=== PATIENT | female | born 1945 | race Caucasian/White ===

== ENCOUNTER 2019-11-21 10:16 | Emergency (ER) | payer MEDICARE, OTHER ==
[2019-11-21 10:29] VITALS: BP 140/83
--- NOTE | 2019-11-21 12:16 | ED Physician Documentation ---
PD HPI HEENT - Stated complaint Stated Complaint: SINUS ISSUES - Chief complaint Chief Complaint: Heent - History obtained from History obtained from: Patient - History of Present Illness Timing - onset: How many days ago (3-4) Timing - duration: Days Timing - details: Gradual onset Location: Sinuses Improves: Nothing Associated symptoms: Congestion, Rhinorrhea, Headache. No: Fever Similar symptoms before: Diagnosis Recently seen: Not recently seen - Additional information Additional information: This is a 74-year-old woman with a history of recurrent sinus infection who presents with complaints that she thinks she has a another sinus infection. She has had a cold for the past 3 or 4 days just feeling achy and congested little cough with minimal phlegm but then today around 2 AM she developed a "throbbing headache worse across the frontal region but now her right maxillary sinus is also very painful. She is been using her [place]a pot trying to flush things out without success. She thinks the last time she was on antibiotics was a couple years ago. She is been nauseous today and vomited some bile. She has had no fever. 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 She also has asthma. Review of Systems Constitutional: denies: Fever Eyes: reports: Other (No blurry or double vision). denies: Loss of vision Ears: reports: Loss of hearing (Wears hearing aids). denies: Ear pain Nose: reports: Rhinorrhea / runny nose, Congestion, Sinus pressure / pain Throat: reports: Sore throat Respiratory: reports: Cough GI: reports: Nausea, Vomiting PD PAST MEDICAL HISTORY - Present Medications Home Medications: Ambulatory Orders Medication Instructions Recorded Confirmed Amoxicillin 500 mg PO TID 10 Days #1 bottle 11/21/19 Ondansetron Odt [Zofran] 4 mg TL Q6H PRN #6 tablet 11/21/19 - Allergies Allergies/Adverse Reactions: Allergies Allergy/AdvReac Type Severity Reaction Status Date / Time No Known Drug Allergies Allergy Verified 11/21/19 10:23 PD ED PE NORMAL - Vitals Vital signs reviewed: Yes - General General: Alert and oriented X 3, No acute distress, Well developed/nourished - HEENT HEENT: Atraumatic, PERRL, EOMI, Ears normal, Moist mucous membranes, Pharynx benign - Neck Neck: Supple, no meningeal sign, No adenopathy - Cardiac Cardiac: RRR, No murmur - Respiratory Respiratory: No respiratory distress, Clear bilaterally Results - Vitals Vitals: Vital Signs - 24 hr 11/21/19 10:23 Temperature 37.1 C Heart Rate 88 Respiratory 16 Rate Blood Pressure 140/83 H O2 Saturation 96 Oxygen O2 Source Room air PD MEDICAL DECISION MAKING - ED course Complexity details: d/w patient ED course: Patient was placed on amoxicillin 500 mg 3 times daily. Urged to continue using her [place] pot. Ibuprofen as a anti-inflammatory and steam can also help to open up the sinus and allow it to drain. Follow-up with her ENT if her symptoms are not improving. Departure - Departure Disposition: Home, Self Care Clinical Impression: Sinusitis Qualifiers: Sinusitis location: other Chronicity: acute Recurrence: recurrent Qualified Code(s): J01.81 - Other acute recurrent sinusitis Condition: Good Instructions: ED Sinusitis Abx Tx Follow-Up: Katia Weinberg MD [Primary Care Provider] - Prescriptions: Amoxicillin 500 mg PO TID 10 Days #1 bottle Ondansetron Odt [Zofran] 4 mg TL Q6H PRN #6 tablet PRN Reason: Nausea / Vomiting Comments: Continue to use your Norma pot. Take the amoxicillin 3 times a day for 10 days. Use ibuprofen to help with the inflammation and pain. May take the Zofran if needed for nausea. Follow-up with your ENT if you are not improving. Discharge Date/Time: 11/21/19 13:07
[2019-11-21] MEDS ORDERED: ONDANSETRON ODT 4 MG TABLET TL STA (12:59)
== END 2019-11-21 13:07 | disposition home or self-care (01) ==
LOC: ED 10:16
DX: J01.81 Other acute recurrent sinusitis (principal)
CPT/HCPCS: 99282; 99284; Q0162

== ENCOUNTER 2020-07-11 13:26 | Outpatient (CLI) | payer MEDICARE, OTHER | END 2020-07-11 13:27 | disposition home or self-care (01) | LOC: COV 13:26 | PROVIDERS: ATTEND Family Medicine | DX: R05 Cough (principal); R06.02 Shortness of breath; M79.10 Myalgia, unspecified site; R53.83 Other fatigue; R68.83 Chills (without fever); J02.9 Acute pharyngitis, unspecified; R09.81 Nasal congestion; Z20.828 Contact with and (suspected) exposure to other viral communicable diseases ==

== ENCOUNTER 2020-09-12 11:25 | Outpatient (CLI) | payer MEDICARE, OTHER | END 2020-09-12 11:26 | disposition home or self-care (01) | LOC: COV 11:25 | PROVIDERS: ATTEND Family Medicine | DX: R53.83 Other fatigue (principal); J02.9 Acute pharyngitis, unspecified; Z20.828 Contact with and (suspected) exposure to other viral communicable diseases ==

== ENCOUNTER 2020-10-31 08:00 | Outpatient (CLI) | payer MEDICARE, OTHER | END 2020-10-31 23:59 | disposition home or self-care (01) | LOC: LAB.R 08:00 | PROVIDERS: ATTEND Physician Assistant | DX: J06.9 Acute upper respiratory infection, unspecified (principal); Z20.828 Contact with and (suspected) exposure to other viral communicable diseases | CPT/HCPCS: 87275; 87276; U0004 ==

== ENCOUNTER 2022-08-11 14:55 | Emergency (ER) | payer MEDICARE, OTHER ==
--- OUTSIDE RECORDS SUMMARY | 2022-08-11 15:23 | EXTERNAL MEDICAL SUMMARY RPT | Continuity of Care Document ---
:1945 Author Organization [facility] Address [address] [place] [address] Phone Care Team Providers Name Role Phone Unavailable Unavailable Unavailable Wesley Burnett Pa-C Unavailable Unavailable Allergies No information. Encounters No information. Functional Status No information. Immunizations No information. Medications date description facility [id number] omeprazole [facility] [id number] omeprazole [facility] [id number] omeprazole [facility] [id number]+0000 omeprazole [facility] Problems No information. Procedures date description facility [id number] Visit Code Hold [facility] Results/Labs No information. Social History date description facility [id number] Never smoker [facility] Vital Signs date measurement value units [id number] BMI BMI 27.22 kg/m2 [id number]+0000 BP_diastolic BP_diastolic 85 mmHg [id number]+0000 BP_systolic BP_systolic 153 mmHg [id number]+0000 heart_rate heart_rate 82 /min [id number]+0000 height_metric height_metric 162.56 cm [id number]+0000 height_standard height_standard 64 in [id number]+0000 respiration_rate respiration_rate 16 /min [id number]+0000 temperature_metric temperature_metric 36.22 C [id number]+0000 temperature_standard temperature_standard 9 7.2 F [id number]+0000 weight_metric weight_metric 71.67 kg [id number]+0000 weight_standard weight_standard 158 lb
[2022-08-11 15:41] LABS: BASOPHILS # (AUTO) 0.1 10^3/uL (0.0-0.1); BASOPHILS % (AUTO) 0.7 %; EOSINOPHILS # (AUTO) 0.1 10^3/uL (0.0-0.7); EOSINOPHILS % (AUTO) 1.3 %; HCT - HEMATOCRIT 40.8 % (37.0-47.0); HGB - HEMOGLOBIN 13.1 g/dL (12.0-16.0); LYMPHOCYTES # (AUTO) 2.2 10^3/uL (1.5-3.5); LYMPHOCYTES % (AUTO) 31.3 %; MEAN CORPUSCULAR HEMOGLOBIN 30.5 pg (27.0-31.0); MEAN CORPUSCULAR HGB CONC 32.1 g/dL (32.0-36.0); MEAN CORPUSCULAR VOLUME 95.1 fL (81.0-99.0); MEAN PLATELET VOLUME 10.5 fL (7.9-10.8); MONOCYTES # (AUTO) 0.7 10^3/uL (0.0-1.0); MONOCYTES % (AUTO) 9.8 %; NEUTROPHILS % (AUTO) 56.8 %; PLT - PLATELET COUNT 226 10^3/uL (130-450); RED BLOOD COUNT 4.29 10^6/uL (4.20-5.40); RED CELL DISTRIBUTION WIDTH 13.4 % (12.0-15.0); WHITE BLOOD COUNT 7.1 x10^3/uL (4.8-10.8)
[2022-08-11 15:50] LABS: ALBUMIN 4.5 g/dL (3.2-5.5); ALBUMIN/GLOBULIN RATIO 1.5 (1.0-2.2); BILIRUBIN,TOTAL 0.6 mg/dL (0.2-1.0); CALCIUM 10.1 mg/dL (8.5-10.3); CREATININE 0.6 mg/dL (0.4-1.0); POTASSIUM 3.8 mmol/L (3.5-5.0); TOTAL PROTEIN 7.5 g/dL (6.7-8.2)
[2022-08-11 16:55] LABS: BILIRUBIN,URINE NEGATIVE (NEGATIVE); GLUCOSE, URINE (UA) NEGATIVE (NEGATIVE); KETONES,URINE (UA) NEGATIVE (NEGATIVE); LEUKOCYTE ESTERASE, URINE TRACE (NEGATIVE); NITRITE,URINE POSITIVE (NEGATIVE); OCCULT BLOOD,URINE NEGATIVE (NEGATIVE); PROTEIN,URINE NEGATIVE (NEGATIVE); UROBILINOGEN,URINE 0.2 (NORMAL) E.U./dL (NORMAL)
[2022-08-11 17:01] LABS: CLARITY,URINE HAZY (CLEAR)
[2022-08-11 17:06] LABS: BACTERIA,URINE Many /HPF (None Seen); RBC,URINE 0-5 /HPF (0-5); SQUAMOUS EPITHELIAL CELL,UR RARE Squamous (<= Few)
--- NOTE | 2022-08-11 18:17 | ED Physician Documentation ---
PD HPI ABD PAIN - Stated complaint Stated Complaint: R SIDE PX - Chief complaint Chief Complaint: Abd Pain - History obtained from History obtained from: Patient - Additional information Additional information: Patient is 77-year-old female presenting for evaluation of right lower quadrant pain starting 10 days ago. The pain is intermittent. It has radiated to the right flank. The pain is now constant and feels like a dull ache. She denies dysuria or hematuria But reports frequency. She denies diarrhea, nausea vomiting or constipation. Nothing makes her symptoms Worse. She does have some improvement at times with naproxen. She denies history of similar pains. She denies history of abdominal surgeries. She denies fever, chest pain or difficulty breathing. She does not take any blood thinners. Review of Systems Constitutional: denies: Fever Nose: denies: Congestion Throat: denies: Sore throat Cardiac: denies: Chest pain / pressure Respiratory: denies: Dyspnea GI: reports: Abdominal Pain. denies: Nausea, Vomiting : reports: Frequency. denies: Dysuria Musculoskeletal: denies: Back pain Neurologic: denies: Headache PD PAST MEDICAL HISTORY - Present Medications Home Medications: Ambulatory Orders Medication Instructions Recorded Confirmed Amoxicillin 500 mg PO TID 10 Days #1 bottle 11/21/19 Ondansetron Odt [Zofran] 4 mg TL Q6H PRN #6 tablet 11/21/19 Nitrofurantoin [Macrobid] 1 cap PO BID #10 cap 08/11/22 - Allergies Allergies/Adverse Reactions: Allergies Allergy/AdvReac Type Severity Reaction Status Date / Time No Known Drug Allergies Allergy Verified 11/21/19 10:23 PD ED PE NORMAL - General General: Alert and oriented X 3, No acute distress, Well developed/nourished - HEENT HEENT: Atraumatic, Moist mucous membranes - Neck Neck: Supple, no meningeal sign - Cardiac Cardiac: RRR, No murmur, Strong equal pulses - Respiratory Respiratory: No respiratory distress, Clear bilaterally - Abdomen Abdomen: Normal bowel sounds, Soft, Non distended, Other (Mild right lower quadrant tenderness to palpation, no rebound, no guarding, no hernia or palpable masses) - Back Back: No CVA TTP - Derm Derm: Warm and dry - Extremities Extremities: No edema - Neuro Neuro: Normal speech Results - Vitals Vitals: Vital Signs - 24 hr 08/11/22 08/11/22 08/11/22 14:59 15:07 17:07 Temperature 36.9 C 36.9 C Heart Rate 69 69 62 Respiratory 16 16 20 Rate Blood Pressure 159/76 H 159/76 H 179/90 H O2 Saturation 98 98 97 08/11/22 08/11/22 19:00 19:45 Temperature 36.8 C Heart Rate 79 75 Respiratory 20 19 Rate Blood Pressure 116/65 117/63 O2 Saturation 96 97 Oxygen O2 Source Room air - Labs Labs: Laboratory Tests 08/11/22 08/11/22 08/11/22 15:19 15:19 16:46 WBC 7.1 RBC 4.29 Hgb 13.1 Hct 40.8 MCV 95.1 MCH 30.5 MCHC 32.1 RDW 13.4 Plt Count 226 MPV 10.5 Neut # (Auto) 4.0 Lymph # (Auto) 2.2 [place] # (Auto) 0.7 Eos # (Auto) 0.1 Baso # (Auto) 0.1 Absolute Nucleated RBC 0.00 Nucleated RBC % 0.0 Sodium 143 Potassium 3.8 Chloride 106 Carbon Dioxide 30 Anion Gap 7.0 BUN 16 Creatinine 0.6 Estimated GFR (MDRD) 97 Glucose 113 H Calcium 10.1 Total Bilirubin 0.6 AST 19 ALT 18 Alkaline Phosphatase 90 Total Protein 7.5 Albumin 4.5 Globulin 3.0 Albumin/Globulin Ratio 1.5 Lipase 54 H Urine Color YELLOW Urine Clarity HAZY Urine pH 6.0 Ur Specific [employer] 1.020 Urine Protein NEGATIVE Urine Glucose (UA) NEGATIVE Urine Ketones NEGATIVE Urine Occult Blood NEGATIVE Urine Nitrite POSITIVE H Urine Bilirubin NEGATIVE Urine Urobilinogen 0.2 (NORMAL) Ur Leukocyte Esterase TRACE H Urine RBC 0-5 Urine WBC 11-25 H Ur Squamous Epith Cells RARE Squamous Urine Bacteria Many H Ur Microscopic Review INDICATED Urine Culture Comments INDICATED PD MEDICAL DECISION MAKING - ED course Complexity details: reviewed results, re-evaluated patient, d/w patient ED course: Patient presenting for evaluation of right-sided abdominal pain that has been intermittent over the course of 10 days. Her vital signs are stable and overall her abdominal exam is benign. Labs without significant findings. Her urine is concerning for an infection. Her CT scan is unremarkable. Patient denies dysuria but does report some frequency with urination. As her symptoms are also in the lower abdomen discussed treatment for UTI which she is agreeable to. Patient was counseled on concerning symptoms to return for. She declined need for pain medications while in the emergency department. Departure - Departure Disposition: 01 Home, Self Care Clinical Impression: Right sided abdominal pain, UTI (urinary tract infection) Condition: Stable Instructions: ED Abdominal Pain Female Non-Specific Abdominal Pain, ED UTI Cystitis Female Prescriptions: Nitrofurantoin [Macrobid] 1 cap PO BID #10 cap Comments: You were evaluated for right-sided abdominal pain. Your labs were overall reassuring and your CT scan did not reveal a cause for the pain. Your urine however was concerning for an infection and we have started you on an antibiotic called Macrobid. I have sent the prescription to [facility] in [place]. Please make sure to complete the course of the antibiotic. We have also sent a urine culture and if you need a different antibiotic we will notify you. If you have any new or worsening symptoms please return to the emergency department. Discharge Date/Time: 08/11/22 19:48
--- NOTE | 2022-08-11 19:27 | CT Report ---
PROCEDURE: Abdomen/Pelvis W INDICATIONS: RLQ pain CONTRAST: IV CONTRAST: Optiray 320 ml: 100 PO CONTRAST: *NO PO CONTRAST TECHNIQUE: After the administration of weight appropriate dose of intravenous contrast, 5 mm thick sections acqu ired from the diaphragms to the symphysis. 5 mm thick coronal and sagittal reformats were acquired. For radiation dose reduction, the following was used: automated exposure control, adjustment of mA and/or kV according to patient size. COMPARISON: None. FINDINGS: Image quality: Excellent. ABDOMEN: Lung bases: Bibasilar atelectasis. Heart size is normal. Solid organs: Liver and spleen are normal in size and enhancement. Hepatic steatosis. Gallbladder is unremarkable. Biliary system is non dilated. Pancreas enhances normally. No adrenal nodules. Kid neys demonstrate normal size and enhancement, without hydronephrosis. No perinephric stranding. Bila teral ureters are normal in course and caliber. Peritoneum and bowel: Bowel loops demonstrate normal wall thickness and caliber. No free fluid or a ir. Extensive colonic diverticulosis without acute diverticulitis. Normal appendix. Nodes and vessels: No retroperitoneal or mesenteric adenopathy by size criteria. Aorta and inferior vena cava are normal in size. Miscellaneous: Small fat-containing umbilical hernia without acute inflammation. PELVIS: Genitourinary: Bladder wall thickness is normal. Miscellaneous: No inguinal hernias or adenopathy. Bones: No suspicious bony lesions. No acute vertebral body compression fractures. Multilevel spondy losis of the imaged spine. IMPRESSION: CT abdomen and pelvis without acute abnormalities to explain patient's right lower quadrant abdominal pain. Normal appendix. Colonic diverticulosis without acute diverticulitis. Small fat-containing umbilical hernia without acute inflammation. Hepatic steatosis. Reviewed by: Willem Hernandes MD on 08/11/2022 7:26 PM PDT Approved by: Willem Hernandes MD on 08/11/2022 7:26 PM PDT Station ID: [id number]
[2022-08-11] MEDS ORDERED: NITROFURANTOIN MACRO 100 MG CAPSULE PO STA (19:37)
[2022-08-11 19:45] VITALS: BP 117/63
== END 2022-08-11 19:48 | disposition home or self-care (01) ==
LOC: ED 14:55
DX: N39.0 Urinary tract infection, site not specified (principal)
CPT/HCPCS: 36415; 74177; 80053; 81001; 83690; 85025; 87086; 87181; 99282; 99284; A9270; Q9967; 81003

== ENCOUNTER 2024-06-17 19:13 | Emergency (ER) | payer MEDICARE, OTHER ==
--- NOTE | 2024-06-17 19:32 | ED Physician Documentation ---
History of Present Illness - Stated complaint Stated Complaint: HIGH HR - Chief complaint Chief Complaint: Cardiac - History obtained from History obtained from: Patient - History of Present Illness Timing: Today Pain level max: 0 Pain level now: 0 - Additonal information Additional information: Patient is a 79-year-old female who presents to the emergency department stating that she has a history of paroxysmal atrial fibrillation. She is on Eliquis. Is not on any rate limiting medications. She states that her heart rate became elevated tonight. She is not having any shortness of breath or chest pain. 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 Nothing makes it better or worse. No fevers. No chills. No cough or congestion. No changes to her medications. No recent illnesses. PD PAST MEDICAL HISTORY - Past Medical History Past Medical History: Yes Cardiovascular: Atrial fibrillation Respiratory: Asthma Other Past Medical History: chronic allerigies - Past Surgical History Past Surgical History: No - Present Medications Home Medications: Ambulatory Orders Medication Instructions Recorded Confirmed Amoxicillin 500 mg PO TID 10 Days #1 bottle 11/21/19 Ondansetron Odt [Zofran] 4 mg TL Q6H PRN #6 tablet 11/21/19 Nitrofurantoin [Macrobid] 1 cap PO BID #10 cap 08/11/22 - Allergies Allergies/Adverse Reactions: Allergies Allergy/AdvReac Type Severity Reaction Status Date / Time No Known Drug Allergies Allergy Verified 06/17/24 19:16 - Social History Does the pt smoke?: No Smoking Status: Never smoker Does the pt drink ETOH?: No - Immunizations Immunizations are current?: Yes PD ED PE NORMAL - Vitals Vital signs reviewed: Yes - General General: Alert and oriented X 3, No acute distress - HEENT HEENT: Moist mucous membranes - Neck Neck: Supple, no meningeal sign - Cardiac Cardiac: Strong equal pulses, Other (irregular tachycardia. ) - Respiratory Respiratory: No respiratory distress, Clear bilaterally - Abdomen Abdomen: Soft, Non tender, Non distended - Derm Derm: Warm and dry - Neuro Neuro: Alert and oriented X 3 - Psych Psych: Normal mood, Normal affect Results - Vitals Vitals: Vital Signs - 24 hr 06/17/24 06/17/24 06/17/24 19:16 19:44 20:27 Temperature 36.4 C L Heart Rate 79 95 75 Respiratory 20 16 12 Rate Blood Pressure 149/101 H 131/83 H 151/86 H O2 Saturation 97 94 98 06/17/24 20:32 Temperature 36.2 C L Heart Rate Respiratory Rate Blood Pressure O2 Saturation Oxygen O2 Source Room air - EKG (time done) 1924 EKG releavant findings:: EKG personally interpreted by author of this note. Relevant findings are: Rate: Rate (enter#) (157) Rhythm: Atrial fibrillation (RVR) [place]: Anterior hemiblock (LAFB) QRS: Normal - Labs Labs: Laboratory Tests 06/17/24 06/17/24 19:55 19:55 WBC 8.1 RBC 4.49 Hgb 13.9 Hct 43.5 MCV 96.9 MCH 31.0 MCHC 32.0 RDW 13.2 Plt Count 260 MPV 9.9 Neut # (Auto) 4.2 Lymph # (Auto) 2.9 [place] # (Auto) 0.8 Eos # (Auto) 0.1 Baso # (Auto) 0.1 Absolute Nucleated RBC 0.00 Nucleated RBC % 0.0 Sodium 144 Potassium 3.6 Chloride 111 Carbon Dioxide 23 Anion Gap 10.0 BUN 15 Creatinine 0.4 L Estimated GFR (MDRD) 154 Glucose 112 H Calcium 10.4 H Magnesium 2.0 Total Bilirubin 0.4 AST 20 ALT 18 Alkaline Phosphatase 107 Total Protein 7.6 Albumin 4.5 Globulin 3.1 Albumin/Globulin Ratio 1.5 Lipase 45 PD Medical Decision Making - ED course Complexity details: reviewed results, re-evaluated patient, considered differential, d/w patient ED course: Patient initially presents to the emergency department with atrial fibrillation with rapid ventricular response. She spontaneously converted back to sinus rhythm, was given a dose of metoprolol and did not have any further episodes of atrial fibrillation. Patient is asymptomatic. No chest pain. No shortness of breath. She has an appointment on Thursday with her track supervisor. No significant lab abnormalities. She does have metoprolol at home, recommend she take this if she feels herself going to atrial fibrillation or her heart begins to race. Patient counseled regarding signs and symptoms for which I believe and urgent re-evaluation would be necessary. Patient with good understanding of and agreement to plan and is comfortable going home at this time This document was made in part using voice recognition software. While efforts are made to proofread this document, sound alike and grammatical errors may occur. Departure - Departure Disposition: 01 Home, Self Care Clinical Impression: Atrial fib/flutter, transient Condition: Good Instructions: ED Paroxysmal Atrial Flutter Follow-Up: Diogo Tesfaye MD [Primary Care Provider] - Jose Bush MD [Physician No Access] - Comments: You have converted out of atrial fibrillation and back into sinus rhythm today. Your laboratory studies are unremarkable. Follow-up with your track supervisor on Thursday as scheduled. You were given a dose of metoprolol today. Forms: PCP List Discharge Date/Time: 06/17/24 20:32
[2024-06-17] MEDS: METOPROLOL TARTRATE 50 MG TABLET PO STA (20:05)
[2024-06-17] MEDS: diltiaZEM INJ 5 MG/ML VIAL IVP STA (20:06)
[2024-06-17 20:07] LABS: BASOPHILS # (AUTO) 0.1 10^3/uL (0.0-0.1); BASOPHILS % (AUTO) 0.7 %; EOSINOPHILS # (AUTO) 0.1 10^3/uL (0.0-0.7); EOSINOPHILS % (AUTO) 1.4 %; HCT - HEMATOCRIT 43.5 % (37.0-47.0); HGB - HEMOGLOBIN 13.9 g/dL (12.0-16.0); LYMPHOCYTES # (AUTO) 2.9 10^3/uL (1.5-3.5); LYMPHOCYTES % (AUTO) 36.3 %; MEAN CORPUSCULAR VOLUME 96.9 fL (81.0-99.0); MEAN PLATELET VOLUME 9.9 fL (7.9-10.8); MONOCYTES # (AUTO) 0.8 10^3/uL (0.0-1.0); MONOCYTES % (AUTO) 9.3 %; NEUTROPHILS # (AUTO) 4.2 10^3/uL (1.5-6.6); NEUTROPHILS % (AUTO) 51.9 %; PLT - PLATELET COUNT 260 10^3/uL (130-450); RED BLOOD COUNT 4.49 10^6/uL (4.20-5.40); RED CELL DISTRIBUTION WIDTH 13.2 % (12.0-15.0); WHITE BLOOD COUNT 8.1 x10^3/uL (4.8-10.8)
[2024-06-17 20:22] LABS: ALBUMIN 4.5 g/dL (3.2-5.5); ALBUMIN/GLOBULIN RATIO 1.5 (1.0-2.2); BILIRUBIN,TOTAL 0.4 mg/dL (0.2-1.0); CALCIUM 10.4 mg/dL (8.5-10.3); CREATININE 0.4 mg/dL (0.6-1.3); POTASSIUM 3.6 mmol/L (3.5-4.5); TOTAL PROTEIN 7.6 g/dL (6.4-8.9)
[2024-06-17 20:39] VITALS: BP 151/86; O2SAT 98
== END 2024-06-17 20:32 | disposition home or self-care (01) ==
LOC: ED 19:13
DX: I48.0 Paroxysmal atrial fibrillation (principal); Z79.01 Long term (current) use of anticoagulants
CPT/HCPCS: 36415; 80053; 83690; 83735; 85025; 93005; 99284; A9270